=== PATIENT | female | born 1975 | race Caucasian/White ===

== ENCOUNTER 2020-09-19 14:38 | Emergency (ER) | payer OTHER | END 2020-09-19 17:05 | disposition home or self-care (01) | LOC: FER 14:38 | DX: T40.2X1A Poisoning by other opioids, accidental (unintentional), initial encounter (principal); R06.02 Shortness of breath; R00.0 Tachycardia, unspecified; E03.9 Hypothyroidism, unspecified; F32.9 Major depressive disorder, single episode, unspecified; Z88.0 Allergy status to penicillin; Z88.1 Allergy status to other antibiotic agents; Z88.5 Allergy status to narcotic agent; Z79.899 Other long term (current) drug therapy; Y92.9 Unspecified place or not applicable | CPT/HCPCS: 71045; 93005 ==

== ENCOUNTER 2021-02-25 10:54 | Emergency (ER) | payer OTHER ==
[2021-02-25 13:05] LABS: BASOPHIL 1.2 % (0-2); EOSINOPHIL 1.9 % (0-5); HCT 40.7 % (37.0-47.0); HGB 12.6 g/dl (12.5-16.0); LYMPHOCYTE 25.7 % (15-48); MCH 26.7 pg (25.0-31.0); MCV 86.2 fL (78.0-100.0); MONOCYTE 7.9 % (0-12); MPV 10.5 fL (6.0-9.5); NRBC 0; PLT 306 K/uL (150-400); RBC 4.72 M/uL (4.20-5.40); RDW 15.4 % (11.5-14.0); WBC 6.9 K/uL (4.0-10.5)
[2021-02-25 13:13] LABS: BUN/CREAT RATIO (CALC) 11.2 RATIO; CREATININE 0.8 mg/dL (0.51-0.95); POTASSIUM 4.1 mmol/L (3.5-5.1)
[2021-02-25 13:36] LABS: INFLUENZA A NAA NEGATIVE (NEGATIVE)
[2021-02-25 13:40] LABS: CORONAVIRUS 2019 SARS-COV-2 POSITIVE (NEGATIVE)
[2021-02-25 14:32] LABS: BILIRUBIN NEGATIVE (NEGATIVE); BLOOD NEGATIVE Ery/uL (NEGATIVE); CLARITY CLEAR (CLEAR); COLOR YELLOW (YELLOW); GLUCOSE (U) NORMAL (NORMAL); LEUKOCYTES NEGATIVE Leu/uL (NEGATIVE); NITRITE NEGATIVE (NEGATIVE); PROTEIN NEGATIVE (NEGATIVE); SPECIFIC GRAVITY 1.015 (1.001-1.030)
[2021-02-25] MEDS ORDERED: BACLOFEN 10MG T10 MG PO (15:41)
[2021-02-25] MEDS ORDERED: ANTIVERT25 MG PO (15:41)
== END 2021-02-25 16:05 | disposition home or self-care (01) ==
LOC: FER 10:54
PROVIDERS: Nurse Practitioner Family
DX: U07.1 COVID-19 (principal); M54.2 Cervicalgia; E03.9 Hypothyroidism, unspecified; F32.9 Major depressive disorder, single episode, unspecified; Z98.890 Other specified postprocedural states; Z88.8 Allergy status to other drugs, medicaments and biological substances; Z88.5 Allergy status to narcotic agent; Z79.899 Other long term (current) drug therapy
CPT/HCPCS: 36415; 80048; 81003; 85025; J2405; J7030; U0002

== ENCOUNTER 2021-03-25 14:29 | Emergency (ER) | payer OTHER ==
[~2021-03-25 14:29] MED LIST: ANTIVERT25 MG PO; BACLOFEN 10MG T10 MG PO
[2021-03-25 17:09] LABS: BASOPHIL 0.9 % (0-2); EOSINOPHIL 1.5 % (0-5); HCT 39.9 % (37.0-47.0); HGB 12.3 g/dl (12.5-16.0); LYMPHOCYTE 36.5 % (15-48); MCH 26.3 pg (25.0-31.0); MCHC 30.8 g/dL (32.0-36.0); MCV 85.3 fL (78.0-100.0); MONOCYTE 7.3 % (0-12); MPV 10.9 fL (6.0-9.5); NEUTROPHIL 53.7 % (41-80); NRBC 0; PLT 330 K/uL (150-400); RBC 4.68 M/uL (4.20-5.40); RDW 15.3 % (11.5-14.0); WBC 6.7 K/uL (4.0-10.5)
[2021-03-25 17:14] LABS: BUN/CREAT RATIO (CALC) 13.3 RATIO; CREATININE 0.75 mg/dL (0.51-0.95); POTASSIUM 4.2 mmol/L (3.5-5.1)
[2021-03-25] MEDS ORDERED: PEPCID40 MG PO (19:20)
== END 2021-03-25 19:51 | disposition home or self-care (01) ==
LOC: FER 14:29
PROVIDERS: Internal Medicine
DX: K21.9 Gastro-esophageal reflux disease without esophagitis (principal); R07.89 Other chest pain; R00.1 Bradycardia, unspecified; Z88.1 Allergy status to other antibiotic agents; Z88.0 Allergy status to penicillin; Z88.5 Allergy status to narcotic agent; Z88.6 Allergy status to analgesic agent; Z86.16 Personal history of COVID-19
CPT/HCPCS: 36415; 71045; 71275; 80048; 84443; 84484; 85025; 93005; J2405; Q9967